=== PATIENT | female | born 1975 | race Caucasian/White ===

== ENCOUNTER 2019-10-30 14:51 | Outpatient (CLI) | payer OTHER, SELFPAY ==
--- NOTE | ~2019-10-30 | MM_ITS ---
EXAMINATION: MM screening brianna BI w fariba HISTORY: Screening mammogram TECHNIQUE: Craniocaudal and mediolateral oblique 3-D tomosynthesis images were obtained and synthetic 2-D images were generated. CAD analysis was submitted and interpreted. COMPARISON: Comparison to multiple prior studies sequentially, with oldest reviewed study dated 06/2016. BREAST PARENCHYMAL COMPOSITION: There are scattered areas of fibroglandular density. FINDINGS: There is no evidence of suspicious mass, calcification, or architectural distortion to sugg est malignancy in either breast. There has been no suspicious interval change. IMPRESSION: 1. No mammographic evidence of malignancy. 2. Recommend routine screening mammography in one year. BI-RADS Category 1: Negative Reviewed, dictated and finalized at location [facility].
== END 2019-10-30 14:52 | disposition home or self-care (01) ==
LOC: ANHIMG 14:53
PROVIDERS: PCP Family Medicine; Visit Provider Obstetrics & Gynecology
DX: Z12.31 Encounter for screening mammogram for malignant neoplasm of breast (principal)
CPT/HCPCS: 77063; 77067

== ENCOUNTER 2020-05-26 08:44 | Observation (INO) | payer OTHER, SELFPAY ==
[2020-05-26] VITALS (27 sets, daily range): BP systolic 119–158; BP diastolic 87–107; PULSE 109–142; RESP 13–34; TEMP 36.7–36.9; O2SAT 94–100; BMI 41.6
--- NOTE | ~2020-05-26 | US_ITS ---
US venous doppler [facility] DATE: 05/26/2020 12:52 INDICATION: Swelling of the lower extremities. Pulmonary emboli TECHNIQUE: Real-time and color flow imaging and Doppler analysis of the lower extremity veins COMPARISON: None FINDINGS: There is spontaneous and phasic flow and normal augmentation and color flow signal and norm al compression of the veins of both lower extremities. Greater saphenous veins are patent. IMPRESSION: No evidence of deep venous thrombosis of the lower extremities Reviewed, dictated and finalized at [facility]. Reviewed, dictated and finalized at location A. AST CONCRETE IRONWORKER
--- NOTE | ~2020-05-26 | XR_ITS ---
XR chest 2V DATE: 05/26/2020 09:24 INDICATION: Bilateral leg swelling. Cough. Tachycardia. Elevated d-dimer. TECHNIQUE: PA and lateral views COMPARISON: None FINDINGS: Cardiomegaly. There is pulmonary vascular congestion and redistribution. There is mild prom inence of the fissures. Eli B-lines are noted. Minimal right pleural effusion. The lungs are clear of consolidation. No pneumothorax. IMPRESSION: Cardiomegaly, congestive heart failure, including subpleural and pulmonary interstitial e wendy, small right pleural effusion Reviewed, dictated and finalized at location A. MOTIVE ELECTRICIAN HELPER IMPRESSION: Cardiomegaly, congestive heart failure, including subpleural and pu lmonary interstitial edema, small right pleural effusion
--- NOTE | ~2020-05-26 | CT_ITS ---
EXAMINATION: CTA chest PE protocol DATE: 05/26/2020 10:57 INDICATION: Elevated d-dimer. Tachycardia. TECHNIQUE: Computed tomography angiography (CTA) of the chest was performed with 100 mL Omnipaque-350 intravenous contrast timed to evaluate the pulmonary arteries. Coronal maximum intensity projection 3D-reconstructions were created by the technologist. Automated exposure control and iterative reconst ruction technique were employed. Exam dose: 819.37 mGy-cm total exam DLP. COMPARISON: May 26, 2020 PA and lateral chest FINDINGS: There is diagnostic contrast enhancement of the pulmonary arteries. Multiple left lower lob e pulmonary emboli are identified. Cardiomegaly. No pericardial effusion. There are small bilateral pleural effusions, right greater than left. No hilar or mediastinal mass lesion or lymphadenopathy. No thoracic aortic aneurysm. There is prominence of the interlobular septa of the long and some groundglass infiltrates of the tasia gs, suggesting pulmonary edema. Small sliding hiatal hernia. Diverticulosis of the splenic flexure of the colon. Included upper abdominal structures are otherwise unremarkable. No suspicious osteolytic or osteoblastic lesions. IMPRESSION: Left lower lobe pulmonary emboli Congestive heart failure, mild pulmonary edema, small pleural effusions Reviewed, dictated and finalized at [facility]. Dr. Mckinney telephoned the report including left lower lobe pulmonary emboli congestive heart failure to emergency room physician Dr. Peterson on May 2013 at 1110 hours Reviewed, dictated and finalized at location A. ROOM WORKER
--- NOTE | 2020-05-26 08:56 | ECG_ITS ---
Measurements Intervals [place] Rate: 127 P: 67 AR: 149 QRS: -18 QRSD: 95 T: 87 QT: 408 QTc: 593 Interpretive Statements SINUS TACHYCARDIA LOW QRS VOLTAGE IN PRECORDIAL LEADS CANNOT RULE OUT SEPTAL INFARCT, AGE INDETERMINATE BORDERLINE ST-T WAVE ABNORMALITY- HIGH LATERAL LEADS BASELINE ARTIFACT- I, III, AVR, AVL, AVF, V4,-V6 ABNORMAL ECG Electronically Signed On 05-26-2020 12:57:22 AIR BATTLE MANAGER by Bernard Marsh D.O.
--- NOTE | 2020-05-26 09:12 | ED.GENADULT ---
HPI - General Adult General Chief complaint: Unspecified Stated complaint: BLE SWELLING Time Seen by Provider: 05/26/20 08:49 Source: patient Mode of arrival: ambulatory Limitations: no limitations History of Present Illness HPI narrative: This patient is a 44 year old female with history of PCOS and psoriasis who presents for evaluation of bilateral feet swelling and abdominal bloating. She has been dealing with bilateral feet swelling for several weeks. She reports her swelling worsened yesterday so she became concerned. She reports chronic ankle swelling due to history of broken ankles. She denies leg pain or calf pain. She states she has chronic cough that is due to postnasal drip. She denies shortness of breath, chest pain, fever or chills. She reports she was prescribed an inhaler and cough medication a few weeks ago. She started working out last week, and she denies shortness of breath or chest pain during that . She also notes abdominal bloating, and thinks if she had a bowel movement she would feel better. She had a bowel movement last night, and she denies abdominal pain. She has gained over 10 pounds because she has not been doing much and she has been eating alot. Related Data Home Medications Medication Instructions Recorded Confirmed No Home Medications 05/26/20 05/26/20 Allergies Allergy/AdvReac Type Severity Reaction Status Date / Time adhesive tape Allergy Unknown BLISTERS Verified 05/26/20 08:58 Sulfa (Sulfonamide Allergy Unknown ANAPHALAXIS Verified 05/26/20 08:58 Antibiotics) CEPHALEXIN MONOHYDRATE Allergy Mild KIDNEY Uncoded 05/26/20 08:58 STONES Review of Systems Review of Systems: All systems reviewed & are unremarkable except as noted in HPI and below Constitutional: Constitutional: Denies chills, Denies fatigue and Denies fever(s) Eyes: Eyes: Denies blind spots and Denies blurry vision Cardiovascular: Cardiovascular: Denies chest pain at rest, Denies chest pain with activity, Denies syncope and Denies dyspnea Respiratory: Respiratory: Reports cough Gastrointestinal: Gastrointestinal: Denies abdominal pain and Reports bloating PMFSH Past Medical History Medical History (Updated 05/26/20 @ 13:56 by Anya Saucedo NP) Broken leg Last 1 being in 2005. Both of her legs have been broken in the past. History of PCOS Ovarian mass PCOS (polycystic ovarian syndrome) Pilonidal cyst Extracted several times Psoriasis Seasonal allergies Surgical History Surgical History (Updated 05/26/20 @ 13:46 by Anya Saucedo NP) H/O prior ablation treatment Uterine due to heavy bleeding H/O tubal ligation History of removal of pigmented skin lesion History of salpingo-oophorectomy S/P arthroscopic surgery of left knee Family History Family History (Updated 05/26/20 @ 14:38 by Su Alcala RN) Mother Cataract Father Unknown family medical history Social History Social History (Updated 05/26/20 @ 13:50 by Anya Saucedo NP) Social History: The patient is a lifelong smoker. She has 1 daughter. She is . She works for the [employer] She does not drink alcohol, use marijuana or illicit drugs. She is and her mother is a durable power of state's attorney. She is a full code. She lives with her daughter. Smoking status: Never smoker Alcohol intake: never Substance use: never Gender identity (if verbalized by the patient): Female Spiritual care concerns: No Exam Const: General: comfortable and no acute distress Nutritional Appearance: obese Limitations: no limitations HENMT: Head: atraumatic Eyes: General: appearance normal, both eyes and all related structures EOM: EOMs intact bilaterally Chest: Chest palpation & inspection: normal inspection of the chest Resp: Effort & Inspection: normal respiratory effort and able to speak in complete sentences Auscultation: clear to auscultation bilaterally C
[2020-05-26 09:22] LABS: Basophils Percent Auto 0.5 % (0.2-1.2); Eosinophils Percent Auto 0.5 % (0-4.4); Hematocrit 35.8 % (37.0-47.0); Hemoglobin 10.1 g/dL (12.0-15.0); Immature Granulocyte Absolute 0.04 K/mm3 (0.00-0.031); Immature Granulocyte Percent A 0.5 % (0-0.5); Lymphocytes Absolute Auto 0.78 K/mm3 (0.9-3.2); Mean Corpuscular HGB Conc 28.2 g/dl (32-36); Mean Corpuscular Hemoglobin 22.1 pg (26-34); Mean Corpuscular Volume 78.5 fl (80-100); Mean Platelet Volume 9.8 fl (7.4-10.4); Monocytes Absolute Auto 0.6 K/mm3 (0.1-0.6); Monocytes Percent Auto 7.5 % (2.6-8.5); Neutrophils Absolute Auto 6.3 K/mm3 (1.3-6.7); Platelet Count Result 250 k/mm3 (150-375); Red Blood Count 4.56 M/mm3 (4.2-5.4); Red Cell Distribution Width 17.5 % (11.5-14.5); White Blood Count 7.8 K/mm3 (4.5-10.0)
[2020-05-26 09:32] LABS: INR 1.1; Prothrombin Time 14.4 Seconds (11.1-14.7)
[2020-05-26 09:33] LABS: Partial Thromboplastin Time 26.7 SECONDS (22.3-36.8)
[2020-05-26 09:34] LABS: Alanine Aminotransferase 38 U/L (4-35); Albumin Level 3.8 g/dL (3.5-5.1); Alkaline Phosphatase 66 U/L (38-126); Anion Gap 8 mmol/L (8-16); Aspartate Amino Transferase 37 U/L (14-36); Bilirubin,Total 1.3 mg/dL (0.2-1.3); Blood Urea Nitrogen 12 mg/dL (7-17); Carbon Dioxide 26 mmol/L (22-30); Chloride 106 mmol/L (98-107); Estimated CRCL calculation 116 ml/min; Estimated Glomerular Filt Rate > 60; Glucose 148 mg/dL (65-105); Magnesium 1.9 mg/dL (1.6-2.3); Potassium 4.4 mmol/L (3.4-5.0); Sodium 140 mmol/L (137-145)
[2020-05-26 09:41] LABS: Lactic Acid Reflex 1.9 mmol/L (0.7-2.1)
[2020-05-26 09:42] LABS: D Dimer 1.17 ug/mL (<0.48)
[2020-05-26 09:46] LABS: NT Pro B Type Natriuretic Pept 3760 PG/ML (5-100); Troponin I < 0.012 ng/mL (0.000-0.034)
[2020-05-26] MEDS: FUROSEMIDE INJ 40 MG/4 ML VIAL IV PUSH ×2 (10:44→22:34)
[2020-05-26] MEDS: ENOXAPARIN 120 MG/0.8 ML SYRINGE SUB-Q (11:29)
--- NOTE | 2020-05-26 13:24 | PM.IMHP ---
H&P: HPI History of Present Illness Date/Time: 05/26/20 13:24 Chief Complaint: Edema to lower extremities Narrative: Court Finnegan is a 44 year old female urgent care approximately week and half ago due to nasal congestion and some congestion in her chest. She was checked for COVID-19 was found to be negative. The patient had an inhaler and some Tessalon Perles. She stop taking the Tessalon Perles because she got constipated. She no longer uses the inhaler. She really has not felt that short of breath since then and the congestion has not gotten any worse. The patient presented to the emergency room cut her feet started to swell. She also felt bloated in her stomach. She said that she has felt swollen for several weeks. 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 Patient has a history of having broken ankle several years ago last 1 being in 2005. She has had no prior history of of any DVTs or PEs. The patient has had a cough due to postnasal drainage. The patient has felt distended felt like she needed to have a bowel movement. She has gained 10 lb because she has not been as active she usually is and has been eating a lot. No chest pain, no fever, and no chills. She has no history of any dysrhythmias. Her heart rate was in the 120s. Blood pressure was elevated to 151/107. H&H was 10.1 and 35.1. Chest x-ray was read as cardiomegaly, congestive heart failure, including subpleural pulmonary interstitial edema, small right pleural effusion. She has no prior history of having congestive heart failure and was given Lasix in the emergency room. She had a chest CT a which was read as left lower lobe pulmonary emboli. Congestive heart failure, mild pulmonary edema, small pleural effusion. Patient was given subcu Lovenox in the emergency room as well as IV Lasix. Patient is being for observation on the date of service of 05/26/2020. Review of Systems Review of Systems: All systems reviewed & are unremarkable except as noted in HPI and below Constitutional: Constitutional: Reports as per HPI and Reports no additional constitutional complaints Eyes: Eyes: Reports as per HPI and Reports no additional eye complaints ENT: Reports system reviewed and no additional complaints, except as documented and Reports Normal hearing present Cardiovascular: Cardiovascular: Reports no additional cardiovascular complaints Respiratory: Respiratory: Reports no additional respiratory complaints and Reports no additional respiratory complaints Gastrointestinal: Gastrointestinal: Reports as per HPI and Reports no additional gastrointestinal complaints Musculoskeletal: Musculoskeletal: Reports no additional musculoskeletal complaints Integumentary/Breasts: Skin/Breast: Reports system reviewed and no additional complaints, except as docu and Reports as per HPI Neurologic: Reports system reviewed and no additional complaints, except as documented, Reports as per HPI and Reports Normal hearing present Psychiatric: Psychiatric: Reports no additional psychiatric complaints and Reports as per HPI Endocrine: Endocrine: Reports no additional endocrine complaints Hematologic/Lymphatic: Hematologic/Lymphatic: Reports no additional hematologic/lymphatic complaints Allergic/Immunologic: Allergic/Immunologic: Reports no additional allergic/immunologic complaints [facility] Past Medical History Medical History (Updated 05/26/20 @ 13:56 by Anya Saucedo NP) Broken leg Last 1 being in 2005. Both of her legs have been broken in the past. History of PCOS Ovarian mass PCOS (polycystic ovarian syndrome) Pilonidal cyst Extracted several times Psoriasis Seasonal allergies Surgical History Surgical History (Updated 05/26/20 @ 13:46 by nAya Saucedo NP) H/O prior ablation treatment Uterine due to heavy bleeding H/O tubal ligation History of removal of pig
[2020-05-26] MEDS: RIVAROXABAN 15 MG TABLET PO (21:29)
[2020-05-27] VITALS (10 sets, daily range): BP systolic 126–136; BP diastolic 84–99; PULSE 98–125; RESP 14–18; TEMP 36–36.7; O2SAT 97–100
--- NOTE | 2020-05-27 06:00 | ECHO_ITS ---
Patient Info Name: Court Finnegan Age: 44 years : 1975 Gender: Female Ht: 65 in Wt: 251 lbs BSA: 2.34 m2 HR: 120 bpm BP: 132 / 99 mmHg Heart Rhythm: Tachycardia, Sinus Rhythm Technical Quality: Good Exam Date: 05/27/2020 9:53 AM Exam Location: [facility] Patient Status: Inpatient Admit Date: 05/26/2020 Staff Ordering Physician: Gabi Peterson MD Crester: Heath Alonso RDCS Attending Provider: Nemo Arreola MD Referring Physician: Kristen HARKINS; Exam Type: CA echo dop color flow w con Study Info Indications I50.21 - Acute systolic (congestive) heart failure Complete two-dimensional, color flow and Doppler transthoracic echocardiogram is performed with contrast to opacify the left ventricle and to improve the deliniation of the left ventricle endocardial borders. Strain analysis performed. Contrast/Agitated Saline Contrast/Ag. Saline: Definity Amount: 4.00 ml Administered By: Estephania Jose RN Existing IV Access: Yes History/Risk Factors CHF; Pulmonary emboli, edema, cardiomegaly. Summary 1. Left ventricular chamber dimension is moderately enlarged. 2. Left ventricular systolic function is severely reduced, estimated at 20-25%. 3. There is mildly increased left ventricular wall thickness. 4. The left ventricular diastolic function is abnormal. 5. Global longitudinal strain is abnormal at -2 %. 6. Left atrial chamber dimension is moderately enlarged. 7. The mitral valve has thickened leaflets. 8. There is mild mitral valve regurgitation. 9. There is mild tricuspid valve regurgitation. 10. Moderate pulmonary hypertension, estimated pulmonary arterial systolic pressure is 49 mmHg. 11. There is mild pulmonic regurgitation. Left Ventricle Left ventricular chamber dimension is moderately enlarged. Left ventricular systolic function is severely reduced, estimated at 20-25%. There is mildly increased left ventricular wall thickness. The left ventricular diastolic function is abnormal. Global longitudinal strain is abnormal at -2 %. Right Ventricle Right ventricular chamber dimension is normal. Right ventricular systolic function is normal. Left Atria Left atrial chamber dimension is moderately enlarged. Right Atria Right atrial chamber dimension is normal. Atrial Septum Intact interatrial septum visualized by color flow imaging. Aortic Valve The aortic valve is trileaflet. There is no aortic valve sclerosis. There is no aortic valve stenosis. There is trace aortic valve regurgitation. Pulmonic Valve The pulmonic valve is normal. There is no pulmonic valve stenosis. There is mild pulmonic regurgitation. Mitral Valve The mitral valve has thickened leaflets. There is no mitral valve stenosis. There is mild mitral valve regurgitation. Tricuspid Valve The tricuspid valve leaflets are normal. There is no significant tricuspid valve stenosis. There is mild tricuspid valve regurgitation. Moderate pulmonary hypertension, estimated pulmonary arterial systolic pressure is 49 mmHg. Pericardium/Pleural The pericardium appears normal. There is trivial pericardial effusion. Inferior Vena Cava Dilated inferior vena cava with <50% collapse upon inspiration consistent with elevated right atrial pressure, 15 mmHg. Aorta The aortic root size at the sinus of Valsalva is normal. Left Ventricular Outflow Tract
[2020-05-27 06:10] LABS: Basophils Percent Auto 0.5 % (0.2-1.2); Eosinophils Absolute Auto 0.1 K/mm3 (0-0.3); Eosinophils Percent Auto 1.6 % (0-4.4); Hematocrit 35.4 % (37.0-47.0); Immature Granulocyte Absolute 0.01 K/mm3 (0.00-0.031); Immature Granulocyte Percent A 0.2 % (0-0.5); Lymphocytes Percent Auto 15.8 % (18.3-44.2); Mean Corpuscular HGB Conc 28.2 g/dl (32-36); Mean Corpuscular Hemoglobin 21.8 pg (26-34); Mean Corpuscular Volume 77.1 fl (80-100); Monocytes Absolute Auto 0.5 K/mm3 (0.1-0.6); Monocytes Percent Auto 9.5 % (2.6-8.5); Neutrophils Absolute Auto 4.1 K/mm3 (1.3-6.7); Neutrophils Percent Auto 72.4 % (45.5-73.1); Platelet Count Result 219 k/mm3 (150-375); Red Blood Count 4.59 M/mm3 (4.2-5.4); Red Cell Distribution Width 17.4 % (11.5-14.5); White Blood Count 5.7 K/mm3 (4.5-10.0)
[2020-05-27 06:25] LABS: Anion Gap 3 mmol/L (8-16); Blood Urea Nitrogen 13 mg/dL (7-17); CRP 1.1 mg/dL (<1.0); Carbon Dioxide 38 mmol/L (22-30); Chloride 101 mmol/L (98-107); Estimated CRCL calculation 112 ml/min; Estimated Glomerular Filt Rate > 60; Glucose 126 mg/dL (65-105); Potassium 3.6 mmol/L (3.4-5.0); Sodium 142 mmol/L (137-145)
[2020-05-27 06:52] LABS: Hypochromasia 1+ (NORMAL); Macrocytosis 1+ (NORMAL); Microcytosis 1+ (NORMAL); Ovalocytes 1+ (NORMAL); Platelet Estimate Adequate (Adequate); Poikilocytosis 1+ (NORMAL)
[2020-05-27] MEDS: FUROSEMIDE INJ 40 MG/4 ML VIAL IV PUSH ×2 (09:12→20:08)
[2020-05-27] MEDS: RIVAROXABAN 15 MG TABLET PO ×2 (09:12→17:16)
[2020-05-27] MEDS: POTASSIUM CHLORIDE 20 MEQ TABLET 40 MEQ PO (09:12)
[2020-05-27] MEDS: PERFLUTREN LIPID MICROSPHERES 1.5 ML VIAL DILUTED TO 10 ML TOTAL VOLUME IV PUSH (10:14)
--- NOTE | 2020-05-27 11:03 | PM.IMPN ---
Progress Note: A&P Assessment and Plan (1) Pulmonary emboli: Code(s): I26.99 - Other pulmonary embolism without acute cor pulmonale Status: Acute Assessment and Plan: The patient is on room air and she is walking around the room without any difficulty no shortness of breath. The patient did get subcu Lovenox in the emergency room. I am going to start her on Xarelto 15 mg b.i.d. for 21 days and then she will transition to the 20 mg. I discussed this with the patient and she is okay with it. We are waiting for an echo yet. Her venous Dopplers were negative. She has not had any previous history of having a pulmonary emboli. May be related to her immobility. She has had no recent surgeries either. 05/27/20 11:03 Patient is a 44-year-old female morbidly obese presented emergency department with complaint of shortness of breath and lower extremity edema to further evaluate patient had a CTA of the chest which showed Left lower lobe pulmonary emboli, congestive heart failure, mild pulmonary edema, small pleural effusions, patient started on Lovenox pulmonary emboli, lower extremity Doppler is negative for DVT, being diuresed with IV Lasix, patient states feeling much better compared to when she arrived, cardiac echo is pending will follow and further recommendation to follow (2) CHF (congestive heart failure): Code(s): I50.9 - Heart failure, unspecified Status: Acute Assessment and Plan: Possibly related to PE although it does not look like there is any heart strain. Awaiting echo. Continue with Lasix may refer the patient to cardiology outpatient [place]. (3) History of PCOS: Code(s): Z87.42 - Personal history of other diseases of the female genital tract Status: Chronic Assessment and Plan: The patient had a uterine ablation in the past and no longer has menses. 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 She follows with her OBGYN. (4) Obesity: Code(s): E66.9 - Obesity, unspecified Status: Acute Assessment and Plan: We discussed a heart healthy low-sodium diet. Subjective Date/time seen: 05/27/20 11:03 Patient is a 44-year-old female morbidly obese presented emergency department with complaint of shortness of breath and lower extremity edema to further evaluate patient had a CTA of the chest which showed Left lower lobe pulmonary emboli, congestive heart failure, mild pulmonary edema, small pleural effusions, patient started on Lovenox pulmonary emboli, lower extremity Doppler is negative for DVT, being diuresed with IV Lasix, patient states feeling much better compared to when she arrived, cardiac echo is pending will follow and further recommendation to follow Review of Systems Review of Systems: All systems reviewed & are unremarkable except as noted in HPI and below Exam Narrative: Exam Narrative: Morbidly obese Patient is comfortable, NAD HEENT: eyes are clear and none icteric LUNGS: Bilateral fair air entry with rales and rhonchi HEART: RR S1S2 ABD: BS+, Soft and nontender Lower extremities: 2+ edema SKIN: nonjaundiced Neuro: grossly intact. Objective Data Vital Signs Vital Signs: Vital Signs - 24 hr 05/26/20 11:16 05/26/20 11:24 05/26/20 11:30 Temperature Pulse Rate 134 H 124 H 125 H Respiratory Rate 24 H 23 H 23 H Blood Pressure 139/94 H 142/104 H Pulse Oximetry 95 05/26/20 11:33 05/26/20 14:00 05/26/20 16:00 Temperature 98.4 F Pulse Rate 134 H 130 H 115 H Respiratory Rate 34 H 16 Blood Pressure 119/87 Pulse Oximetry 96 05/26/20 19:18 05/26/20 20:00 05/27/20 00:00 Temperature 98.1 F Pulse Rate 116 H 109 H 100 Respiratory Rate 14 Blood Pressure 132/90 Pulse Oximetry 100 05/27/20 04:00 05/27/20 05:20 05/27/20 08:00 Temperature 96.8 F L Pulse Rate 98 105 H 107 H Respiratory Rate 14 Blood Pressure 132/99 H Pulse Oximetry 100 Intake/Output Intake/Output: Intake & Output
--- NOTE | 2020-05-27 13:46 | PM.CNCAR ---
Assessment and Plan Assessment and plan (1) CHF (congestive heart failure): Code(s): I50.9 - Heart failure, unspecified Status: Acute Assessment and Plan: acute systolic congestive heart failure. ? Etiology to this point. Ischemic versus nonischemic. Could be related to viral etiology. Will check a TSH and free T4 level. Will also check a ferritin level. Ischemic evaluation is warranted. This will be performed as an outpatient either with a coronary angiogram which is preferred versus a stress test. This will be after at least 1 month of treatment for her pulmonary embolism. Will initiate Entresto 24/26 mg 1 tablet p.o. b.i.d. as well as carvedilol 3.125 mg p.o. b.i.d.. Will also start spironolactone 12.5 mg p.o. daily. Will check a basic metabolic panel in morning. . Will continue IV furosemide for another 24 hours I also talked to her extensively about life vest. She verbalized understanding and is agreeable. She understands there ejection fraction is less than 35% which puts her at higher risk of sudden cardiac . She is willing to initiate treatment upon discharge. (2) Pulmonary emboli: Code(s): I26.99 - Other pulmonary embolism without acute cor pulmonale Status: Acute Assessment and Plan: Continue Xarelto (3) Cardiomyopathy: Code(s): I42.9 - Cardiomyopathy, unspecified Status: Acute Assessment and Plan: severe. As detailed above (4) Hypertension: Code(s): I10 - Essential (primary) hypertension Status: Acute Assessment and Plan: will start with Entresto and carvedilol (5) Obesity: Code(s): E66.9 - Obesity, unspecified Status: Acute Assessment and Plan: dietary and lifestyle modification for weight loss. History of Present Illness History of Present Illness Consult date/time: 05/27/20 13:46 Requesting physician: Nemo Arreola MD Consult reason: congestive heart failure Reason For Visit: CHF/pulmonary emboli Narrative: date of service 05/27/2020: History: Patient is a 44-year-old female without significant history who started developed some sinus drainage about 3 weeks ago. she has not seen a regular PCP in a few years. She states that every year she will have a sinus infection. Three weeks ago she started to have some sinus drainage and she had a cough also. She was tested for COVID and was negative. She thought she simply had a sinus infection but her symptoms persisted and after talking to her mother, she decided to come to the hospital for further workup and evaluation. Patient states that she started notice her feet being swollen also over the past several weeks. She had labored breathing over the past 3 weeks by doing some things such as climbing up a flight of stairs or long distances. She also states felt a bloated feeling in her stomach. She used an inhaler and some Tessalon Perles but did not feel significantly better. She came to hospital for further workup and evaluation was found to have tachycardia, hypertension. Workup did show a left lower lobe pulmonary emboli. She also had pulmonary edema and pleural effusions. She had an echocardiogram showing a significantly weak heart with an ejection fraction in the 20s. Cardiology consultation was therefore requested. Patient denies any chest pain, syncope, presyncope, paroxysmal nocturnal dyspnea, orthopnea or palpitations. Review of Systems Review of Systems: All systems reviewed & are unremarkable except as noted in HPI and below Constitutional: Constitutional: Reports weakness Eyes: Eyes: Denies blurry vision ENT: Reports Normal hearing present and Reports nasal congestion Cardiovascular: Cardiovascular: Denies chest pain Respiratory: Respiratory: Reports dyspnea and Reports dyspnea on exertion Gastrointestinal: Gastrointestinal: Reports bloating Genitourinary: Genitourinary: Denies flank pain Musculoskeletal: Musculo
[2020-05-27] MEDS: SPIRONOLACTONE 12.5 MG TABLET PO (14:34)
[2020-05-27] MEDS: SACUBITRIL/VALSARTAN 24-26 MG TABLET 1 TAB PO (20:06)
[2020-05-27] MEDS: carvediloL 3.125 MG TABLET PO (20:07)
[2020-05-28] VITALS (9 sets, daily range): BP systolic 116–119; BP diastolic 77–88; PULSE 85–109; RESP 16–18; TEMP 36.1–36.4; O2SAT 97–99
[2020-05-28 05:46] LABS: Hematocrit 39.1 % (37.0-47.0); Hemoglobin 11.3 g/dL (12.0-15.0); Mean Corpuscular HGB Conc 28.9 g/dl (32-36); Mean Corpuscular Hemoglobin 22.2 pg (26-34); Mean Corpuscular Volume 76.7 fl (80-100); Mean Platelet Volume 9.8 fl (7.4-10.4); Platelet Count Result 247 k/mm3 (150-375); Red Cell Distribution Width 17.2 % (11.5-14.5); White Blood Count 6.5 K/mm3 (4.5-10.0)
[2020-05-28 06:02] LABS: Anion Gap 4 mmol/L (8-16); Blood Urea Nitrogen 13 mg/dL (7-17); Calcium 9.3 mg/dL (8.4-10.2); Carbon Dioxide 36 mmol/L (22-30); Chloride 101 mmol/L (98-107); Estimated CRCL calculation 112 ml/min; Estimated Glomerular Filt Rate > 60; Glucose 153 mg/dL (65-105); Potassium 3.9 mmol/L (3.4-5.0); Sodium 141 mmol/L (137-145)
[2020-05-28] MEDS: SPIRONOLACTONE 12.5 MG TABLET PO (08:47)
[2020-05-28] MEDS: FUROSEMIDE INJ 40 MG/4 ML VIAL IV PUSH (08:47)
[2020-05-28] MEDS: SACUBITRIL/VALSARTAN 24-26 MG TABLET 1 TAB PO (08:47)
[2020-05-28] MEDS: carvediloL 3.125 MG TABLET PO (08:47)
[2020-05-28] MEDS: RIVAROXABAN 15 MG TABLET PO (08:47)
--- NOTE | 2020-05-28 09:59 | PM.PNCARD ---
Progress Note: A&P Assessment and Plan (1) CHF (congestive heart failure): Code(s): I50.9 - Heart failure, unspecified Status: Acute Assessment and Plan: acute systolic congestive heart failure. ? Etiology to this point. Ischemic versus nonischemic. Could be related to viral etiology. Will check a TSH and free T4 level. Will also check a ferritin level. Ischemic evaluation is warranted. This will be performed as an outpatient either with a coronary angiogram which is preferred versus a stress test. This will be after at least 1 month of treatment for her pulmonary embolism. Continue Entresto 24/26 mg 1 tablet p.o. b.i.d.. Increase carvedilol to 6.25 mg p.o. b.i.d. as well as spironolactone 25 mg p.o. daily. DC IV furosemide and will discharge her on furosemide 20 mg daily. Follow-up in our office in 1-2 weeks. I also talked to her extensively about life vest. She verbalized understanding and is agreeable. She understands there ejection fraction is less than 35% which puts her at higher risk of sudden cardiac . She is willing to initiate treatment upon discharge. (2) Pulmonary emboli: Code(s): I26.99 - Other pulmonary embolism without acute cor pulmonale Status: Acute Assessment and Plan: Continue Xarelto (3) Cardiomyopathy: Code(s): I42.9 - Cardiomyopathy, unspecified Status: Acute Assessment and Plan: severe. As detailed above (4) Hypertension: Code(s): I10 - Essential (primary) hypertension Status: Acute Assessment and Plan: will start with Entresto and carvedilol and spironolactone (5) Obesity: Code(s): E66.9 - Obesity, unspecified Status: Acute Assessment and Plan: dietary and lifestyle modification for weight loss. Subjective Date/time seen: 05/28/20 09:59 Interval history: 44-year-old with congestive heart failure admitted for shortness of breath Date of service 05/28/2020: She feels much better. No chest pain or shortness of breath. Swelling has improved. Review of Systems Review of Systems: All systems reviewed & are unremarkable except as noted in HPI and below Constitutional: Constitutional: Denies fatigue, Denies headache(s) and Reports weakness Eyes: Eyes: Denies blurry vision ENT: Reports Normal hearing present, Denies headache(s), Reports nasal congestion and Denies neck pain Cardiovascular: Cardiovascular: Denies chest pain, Reports dyspnea and Reports dyspnea on exertion Respiratory: Respiratory: Reports dyspnea and Reports dyspnea on exertion Gastrointestinal: Gastrointestinal: Reports bloating Genitourinary: Genitourinary: Denies flank pain Musculoskeletal: Musculoskeletal: Denies neck pain Integumentary/Breasts: Skin/Breast: Denies dry skin Neurologic: Reports Normal hearing present, Denies headache(s) and Reports weakness Psychiatric: Psychiatric: Reports anxiety Endocrine: Endocrine: Denies fatigue Hematologic/Lymphatic: Hematologic/Lymphatic: Denies easy bleeding Allergic/Immunologic: Allergic/Immunologic: Denies GI upset with certain foods Exam Narrative: Exam Narrative: awake alert oriented. Appears to be in no acute distress Const: General: comfortable and no acute distress HENMT: General nose exam: Normal nares present Eyes: Sclera: sclerae normal Neck: Neck: supple and no JVD Chest: Other: no reproducible chest wall pain to palpation Resp: Auscultation: clear to auscultation bilaterally Cardio: Rate: tachycardic Rhythm: regular rhythm Skin: General skin exam: normal color Other: psoriatic patches seen Neuro: General: gait normal Cranial nerves: Yes Normal hearing present Cognition (Neuro): normal cognition Extrem: General: edema Psych: Mental Status: mental status grossly normal Objective Data Vital Signs Vital Signs: Vital Signs - 24 hr 05/27/20 12:00 05/27/20 14:00 05/27/20 16:00 Temperature 36.7 C Pu
--- NOTE | 2020-05-28 16:40 | PM.DS ---
DS: Admitting Diagnosis Admitting Diagnosis Admitting Diagnosis: Chief Complaint: Edema to lower extremities DS: Discharge Diagnosis Discharge Diagnosis (1) Pulmonary emboli: Code(s): I26.99 - Other pulmonary embolism without acute cor pulmonale Status: Acute Assessment and Plan: The patient is on room air and she is walking around the room without any difficulty no shortness of breath. The patient did get subcu Lovenox in the emergency room. I am going to start her on Xarelto 15 mg b.i.d. for 21 days and then she will transition to the 20 mg. I discussed this with the patient and she is okay with it. We are waiting for an echo yet. Her venous Dopplers were negative. She has not had any previous history of having a pulmonary emboli. May be related to her immobility. She has had no recent surgeries either. 05/27/20 11:03 Patient is a 44-year-old female morbidly obese presented emergency department with complaint of shortness of breath and lower extremity edema to further evaluate patient had a CTA of the chest which showed Left lower lobe pulmonary emboli, congestive heart failure, mild pulmonary edema, small pleural effusions, patient started on Lovenox pulmonary emboli, lower extremity Doppler is negative for DVT, being diuresed with IV Lasix, patient states feeling much better compared to when she arrived, cardiac echo is pending will follow and further recommendation to follow (2) CHF (congestive heart failure): Code(s): I50.9 - Heart failure, unspecified Status: Acute Assessment and Plan: Possibly related to PE although it does not look like there is any heart strain. Awaiting echo. Continue with Lasix may refer the patient to cardiology outpatient [place]. (3) History of PCOS: Code(s): Z87.42 - Personal history of other diseases of the female genital tract Status: Chronic Assessment and Plan: The patient had a uterine ablation in the past and no longer has menses. 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 She follows with her OBGYN. (4) Obesity: Code(s): E66.9 - Obesity, unspecified Status: Acute Assessment and Plan: We discussed a heart healthy low-sodium diet. DS: Summary Hospital Course Reason for hospitalization: Chief Complaint: Edema to lower extremities Narrative: Court Finnegan is a 44 year old female urgent care approximately week and half ago due to nasal congestion and some congestion in her chest. She was checked for COVID-19 was found to be negative. The patient had an inhaler and some Tessalon Perles. She stop taking the Tessalon Perles because she got constipated. She no longer uses the inhaler. She really has not felt that short of breath since then and the congestion has not gotten any worse. The patient presented to the emergency room cut her feet started to swell. She also felt bloated in her stomach. She said that she has felt swollen for several weeks. 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 Patient has a history of having broken ankle several years ago last 1 being in 2005. She has had no prior history of of any DVTs or PEs. The patient has had a cough due to postnasal drainage. The patient has felt distended felt like she needed to have a bowel movement. She has gained 10 lb because she has not been as active she usually is and has been eating a lot. No chest pain, no fever, and no chills. She has no history of any dysrhythmias. Her heart rate was in the 120s. Blood pressure was elevated to 151/107. H&H was 10.1 and 35.1. Chest x-ray was read as cardiomegaly, congestive heart failure, including subpleural pulmonary interstitial edema, small right pleural effusion. She has no prior history of having congestive heart failure and was given Lasix in the emergency room. She had a chest CT a which was read as left lower l
== END 2020-05-28 17:05 | disposition home or self-care (01) ==
LOC: ANHED 11:34 → ANH3MED 12:29
PROVIDERS: Internal Medicine Cardiovascular Disease; Nurse Practitioner; Admitting Provider Family Medicine; Emergency Provider General Practice; Visit Provider Family Medicine
DX: I26.99 Other pulmonary embolism without acute cor pulmonale (principal); I11.0 Hypertensive heart disease with heart failure; I50.9 Heart failure, unspecified; I42.9 Cardiomyopathy, unspecified; M79.89 Other specified soft tissue disorders; E28.2 Polycystic ovarian syndrome; L40.9 Psoriasis, unspecified; Z87.42 Personal history of other diseases of the female genital tract; E66.01 Morbid (severe) obesity due to excess calories; Z68.41 Body mass index [BMI] 40.0-44.9, adult
CPT/HCPCS: 36415; 71046; 71275; 80048; 80076; 81025; 81291; 82728; 83605; 83735; 83880; 84311; 84436; 84443; 84484; 85025; 85027; 85380; 85610; 85730; 86038; 86140; 93005; 93970; 96372; 96374; 96375; 96376; 99285; A9270; C8929; G0378; J1650; J1940; Q9957; Q9967

== ENCOUNTER 2020-11-07 09:17 | Outpatient (CLI) | payer OTHER, SELFPAY ==
--- NOTE | ~2020-11-07 | MM_ITS ---
EXAMINATION: MM screening [facility] HISTORY: Screening mammogram TECHNIQUE: Craniocaudal and mediolateral oblique 3-D tomosynthesis images were obtained and synthetic 2-D images were generated. CAD analysis was submitted and interpreted. COMPARISON: 10/30/2019 bilateral digital screening mammogram / diagnostic right digital mammogram 08/02/2018, 06/17/2017 bilateral digital screening mammogram examinations BREAST PARENCHYMAL COMPOSITION: There are scattered areas of fibroglandular density. FINDINGS: There is no evidence of suspicious mass, calcification, or architectural distortion to sugg est malignancy in either breast. There has been no suspicious interval change. IMPRESSION: 1. No mammographic evidence of malignancy. 2. Recommend routine screening mammography in one year. BI-RADS Category 1: Negative Reviewed, dictated and finalized at location A.
== END 2020-11-07 09:18 | disposition home or self-care (01) ==
PROVIDERS: Visit Provider Obstetrics & Gynecology
DX: Z12.31 Encounter for screening mammogram for malignant neoplasm of breast (principal)
CPT/HCPCS: 77063; 77067

== ENCOUNTER 2022-01-26 07:54 | Outpatient (CLI) | payer OTHER, SELFPAY ==
--- NOTE | ~2022-01-26 | MM_ITS ---
EXAMINATION: MM screening [facility] HISTORY: Screening TECHNIQUE: Craniocaudal and mediolateral oblique 3-D tomosynthesis images were obtained and synthetic 2-D images were generated. CAD analysis was submitted and interpreted. COMPARISON: Comparison to multiple prior studies sequentially, with oldest reviewed study dated 06/2016. BREAST PARENCHYMAL COMPOSITION: The breasts are heterogeneously dense, which may obscure small masses . FINDINGS: There is no evidence of suspicious mass, calcification, or architectural distortion to sugg est malignancy in either breast. There has been no suspicious interval change. IMPRESSION: 1. No mammographic evidence of malignancy. 2. Recommend routine screening mammography in one year. BI-RADS Category 1: Negative Reviewed, dictated and finalized at location A.
== END 2022-01-26 07:55 | disposition home or self-care (01) ==
LOC: ANHIMG 07:56
PROVIDERS: Visit Provider Obstetrics & Gynecology
DX: Z12.31 Encounter for screening mammogram for malignant neoplasm of breast (principal)
CPT/HCPCS: 77063; 77067

== ENCOUNTER 2023-03-08 13:54 | Outpatient (CLI) | payer OTHER, SELFPAY ==
--- NOTE | ~2023-03-08 | MM_ITS ---
EXAMINATION: MM screening [facility] HISTORY: Screening mammogram TECHNIQUE: Craniocaudal and mediolateral oblique 3-D tomosynthesis images were obtained and synthetic 2-D images were generated. CAD analysis was submitted and interpreted. COMPARISON: 01/26/2022, 11/07/2020, 10/30/2019 bilateral screening mammogram examinations BREAST PARENCHYMAL COMPOSITION: There are scattered areas of fibroglandular density. FINDINGS: There is no evidence of suspicious mass, calcification, or architectural distortion to sugg est malignancy in either breast. There has been no suspicious interval change. IMPRESSION: 1. No mammographic evidence of malignancy. 2. Recommend routine screening mammography in one year. BI-RADS Category 1: Negative Reviewed, dictated and finalized at location A. OL RESOURCE OFFICER
== END 2023-03-08 13:55 | disposition home or self-care (01) ==
LOC: ANHIMG 13:56
PROVIDERS: PCP Hospitalist; Visit Provider Obstetrics & Gynecology
DX: Z12.31 Encounter for screening mammogram for malignant neoplasm of breast (principal)
CPT/HCPCS: 77063; 77067

== ENCOUNTER 2024-04-24 07:17 | Outpatient (CLI) | payer OTHER, SELFPAY ==
--- NOTE | ~2024-04-24 | MM_ITS ---
EXAMINATION: MM screening [facility] BI w [facility] HISTORY: Screening mammogram TECHNIQUE: Craniocaudal and mediolateral oblique 3-D tomosynthesis images were obtained and synthetic 2-D images were generated. CAD analysis was submitted and interpreted. COMPARISON: 03/08/2023, 01/26/2022, 11/07/2020 BREAST PARENCHYMAL COMPOSITION:Not Dense. There are scattered areas of fibroglandular density. FINDINGS: No suspicious mass, calcification, or architectural distortion are identified in either william ast to suggest malignancy. There has been no suspicious interval change. IMPRESSION: No mammographic evidence of malignancy. Recommend routine screening mammography in one year. BI-RADS Category 1: Negative Reviewed, dictated and finalized at location . [employer]IC LIFT [employer]IVER
== END 2024-04-24 07:18 | disposition home or self-care (01) ==
LOC: ANHIMG 07:20
PROVIDERS: PCP Hospitalist; Visit Provider Obstetrics & Gynecology
DX: Z12.31 Encounter for screening mammogram for malignant neoplasm of breast (principal)
CPT/HCPCS: 77063; 77067